=== PATIENT | male | born 1970 | race Caucasian/White ===

== ENCOUNTER 2018-05-12 11:07 | Emergency (ER) | payer OTHER ==
[2018-05-12 11:15] VITALS: BMI 28.2
--- NOTE | 2018-05-12 11:28 | PDOC ---
History of Present Illness - General Chief Complaint: Edema Stated Complaint: SWELLING Time Seen by Provider: 05/12/18 11:28 History Source: Patient Exam Limitations: No Limitations - History of Present Illness Initial Comments: 05/12/18 11:49 47 year old male with no PMH presents to ED complaining of rash x1 week and head swelling x1 day. He states he recently traveled to [place] and spent time hiking. He denies fever, chills, nausea, vomiting, diarrhea, abdominal pain, chest pain, shortness of breath, weakness, numbness, tingling. PCP - Dr. Umaña Surgical history - none Allergies - NKDA Denies IV drug use, recreational drug use, ETOH use, and nicotine use. Past History - Past Medical History Allergies/Adverse Reactions: Allergies Allergy/AdvReac Type Severity Reaction Status Date / Time No Known Allergies Allergy Verified 05/12/18 11:15 COPD: No - Suicide/Smoking/Psychosocial Hx Smoking History: Never smoked Review of Systems - Review of Systems Able to Perform ROS?: Yes Comments:: 05/12/18 11:51 General: denies fever, chills, night sweats, generalized weakness. HEENT: denies sore throat, rhinorrhea, ear pain. Heart: denies chest pain, palpitations, syncope, lower extremity swelling. Respiratory: denies shortness of breath, cough, sputum production, hematemesis. Abdomen: denies abdominal pain, nausea, vomiting, diarrhea, constipation, blood in stool. : denies dysuria, urinary frequency, hematuria, urinary incontinence. Back: denies back pain, flank pain. Musculoskeletal: denies joint pain, muscle pain, joint swelling. Neurological: denies dizziness, numbness, tingling, weakness. Skin: admits to rash and forehead swelling. *Physical Exam - Vital Signs Last Vital Signs Temp Pulse Resp BP Pulse Ox 98.3 F 102 H 20 167/102 100 05/12/18 11:12 05/12/18 11:12 05/12/18 11:12 05/12/18 11:12 05/12/18 11:12 - Physical Exam Comments: 05/12/18 11:51 Appearance: comfortable. HEENT: dependent edema to the forehead. EOMI. PERRLA. Neck: supple. Full ROM. Heart: regular rhythm. no murmurs, rubs or gallops. Lungs: clear to auscultation bilaterally. no crackles, rhonchi or wheezing. no stridor. Abdomen: soft, nontender. normal bowel sounds. no rebound, guarding, masses. Back: no CVA tenderness. Extremities: Peripheral pulses intact. No lower extremity edema. Neurological: Alert. Oriented x3. CN 2-12 grossly intact. Moves all four extremities. Skin upper extremities: maculopapular, non-blanching, rash Skin lower extremities: macular, erythematous, non-blanching Skin chest: erythematous, macular, confluent, blanching. Heart Score/ECG Review - ECG Impressions Comment:: 05/12/18 12:15 Rate 99. Regular rhythm. Normal axis. No acute ST changes. Single PVC. *DC/Admit/Observation/Transfer Diagnosis at time of Disposition: Rash - Discharge Dispostion Disposition: HOME Condition at time of disposition: Stable Decision to Admit order: No - Referrals Referrals: Daryl Umaña MD [Primary Care Provider] - - Patient Instructions Additional Instructions: You were seen today for rash. Take Benadryl over the counter for itching. Take Motrin over the counter for pain. Drink lots of clear fluids to stay hydrated. Use ice packs for the swelling to your forehead. Please follow up with your primary care doctor within 7 days, and bring the paperwork given to you today with you. Please follow up with your database engineer within 7 days, and bring the paperwork given to you today with you. Please return to the Emergency Department for fever, chills, nausea, vomiting, chest pain, shortness of breath or any new, worsening or concerning symptoms. - Post Discharge Activity
--- NOTE | 2018-05-12 12:34 | PDOC ---
Attending Attestation - Resident Resident Name: Joselin Spence - ED Attending Attestation I have performed the following: I have examined & evaluated the patient, The case was reviewed & discussed with the resident, I agree w/resident's findings & plan, Exceptions are as noted - HPI HPI: 05/12/18 12:29 "The patient is a 47-year-old male, with no past medical history, who presents to the ED with 1 week of rash and 1 day of swelling to his head. Pt states that the rash is consistent with his previous sunburns. He reports that he was outdoors for the past week in the sun. He used sunscreen intermittently. Pt states that he first developed a red rash to his shins, which were exposed to sun for the longest time. He also reports a rash to his chest and the top of his head after going to the pool yesterday. However, pt noticed swelling to the top of his head, which has since tracked down to his forehead. He states that he doesn't usually get swelling, and this prompted him to come to the ER. The patient denies any fever, chills, nausea, vomiting, diarrhea, or abdominal pain. Denies ISLAS. The patient denies any chest pain or shortness of breath. Allergies: NKDA Surgical History: None reported. Social History: The patient denies any tobacco use, alcohol use, or drug use. PCP - Dr. Umaña " - Physicial Exam PE: 05/12/18 12:34 "GENERAL: Awake, alert, and fully oriented, in no acute distress. HEAD: No signs of trauma EYES: PERRLA, EOMI, sclera anicteric, conjunctiva clear ENT: Auricles normal inspection, hearing grossly normal, nares patent, oropharynx clear without exudates. Moist mucosa NECK: Nontender, no stepoffs, Normal ROM, supple, no lymphadenopathy, JVD, or masses LUNGS: Breath sounds equal, clear to auscultation bilaterally. No wheezes, and no crackles HEART: Regular rate and rhythm, normal S1 and S2, no murmurs, rubs or gallops ABDOMEN: Soft, nontender, normoactive bowel sounds. No guarding, no rebound. No masses EXTREMITIES: Normal range of motion, no edema. No clubbing or cyanosis. No cords, erythema, or tenderness NEUROLOGICAL: Cranial nerves II through XII intact. 5/5 strength and sensation in all extremities, Normal speech, normal gait, normal cerebellar function SKIN: + erythematous macular rash to bilateral shins, + 1st degree sunburn to chest and scalp with mild edema to forehead, no signs of trauma - Medical Decision Making 05/12/18 12:34 47 M with likely sunburn. Pt with no infectious symptoms. No F/C. Rash does not appear cellulitic and pt has no systemic symptoms. Edema on forehead likely tracked down from sunburn on scalp. - Benadryl and motrin PRN Repeat vitals now wnl Pt is well appearing, with normal vitals. Clinically stable for DC at this time. I discussed the physical exam findings, ancillary test results and final diagnoses with the patient. I answered all of the patient's questions. The patient was satisfied with the care received and felt comfortable with the discharge plan and treatment plan. The patient agrees to follow up with the primary care physician within 24-72 hours.
[2018-05-12 12:35] VITALS: BP 148/91; PULSE 93; TEMP 98.6
--- NOTE | 2018-05-13 10:21 | EKG ---
Test Reason : Blood Pressure : / mmHG Vent. Rate : 099 BPM Atrial Rate : 099 BPM P-R Int : 136 ms QRS Dur : 084 ms QT Int : 366 ms P-R-T Axes : 056 053 024 degrees QTc Int : 469 ms SINUS RHYTHM WITH OCCASIONAL PREMATURE VENTRICULAR COMPLEXES POSSIBLE LEFT ATRIAL ENLARGEMENT NONSPECIFIC ST ABNORMALITY ABNORMAL ECG NO PREVIOUS ECGS AVAILABLE Confirmed by MARIANA SALDANA MD ([id number]) on 05/13/2018 10:21:04 AM Referred By: Confirmed By:MARIANA SALDANA MD
--- NOTE | 2018-05-15 11:21 | EKG ---
Test Reason : Blood Pressure : / mmHG Vent. Rate : 108 BPM Atrial Rate : 119 BPM P-R Int : 000 ms QRS Dur : 082 ms QT Int : 318 ms P-R-T Axes : 000 009 004 degrees QTc Int : 426 ms POOR DATA QUALITY, INTERPRETATION MAY BE ADVERSELY AFFECTED ATRIAL FIBRILLATION WITH RAPID VENTRICULAR RESPONSE ABNORMAL ECG WHEN COMPARED WITH ECG OF 12-MAY-2018 11:32, ATRIAL FIBRILLATION HAS REPLACED SINUS RHYTHM QT HAS SHORTENED Confirmed by DANA PATEL, DARREL ([id number]) on 05/15/2018 11:21:30 AM Referred By: Confirmed By:DARREL CORTEZ MD
== END 2018-05-12 12:38 | disposition home or self-care (01) ==
LOC: JER 11:07
DX: L55.9 Sunburn, unspecified (principal)
CPT/HCPCS: 93005; 93010; 99282-25